=== PATIENT | female | born 1985 | race Two or more races ===

== ENCOUNTER 2017-06-01 02:24 | Emergency (ER) | payer MEDICAID, SELFPAY ==
[2017-06-01] MEDS ORDERED: Lorazepam 1 MG TAB ONE (03:07)
[2017-06-01] MEDS ORDERED: Lorazepam 2 MG/ML VIAL ONE (03:11)
--- NOTE | 2017-06-01 07:40 | RAD ---
SINGLE VIEW CHEST: Date: 06/01/17 COMPARISON: 11/07/15. HISTORY: Chest pain and tachycardia. FINDINGS: Single view of the chest shows a normal sized cardiomediastinal silhouette. There is no evidence of c onsolidation, mass, or pleural effusion. The bones are unremarkable. IMPRESSION: No evidence of acute cardiopulmonary disease. POS: [facility]
--- NOTE | 2017-07-02 14:58 | EKG ---
Test Reason : DRUG ABUSE Blood Pressure : / mmHG Vent. Rate : 098 BPM Atrial Rate : 098 BPM P-R Int : 144 ms QRS Dur : 072 ms QT Int : 332 ms P-R-T Axes : 068 070 049 degrees QTc Int : 423 ms Normal sinus rhythm with sinus arrhythmia Possible Left atrial enlargement Borderline ECG Confirmed by BRADLY VIRK, LALITA ([id number]), food editor LAZARO ZAVALA ([id number]) on 07/02/2017 2:57:27 PM Referred By: BRADLY Confirmed By:LALITA ABDULLAHI MD
== END 2017-06-01 04:00 | disposition home or self-care (01) ==
LOC: ERS 02:24
DX: F15.10 Other stimulant abuse, uncomplicated (principal); F41.9 Anxiety disorder, unspecified; R07.9 Chest pain, unspecified; F17.210 Nicotine dependence, cigarettes, uncomplicated; Z71.6 Tobacco abuse counseling; Z86.718 Personal history of other venous thrombosis and embolism
CPT/HCPCS: 71045; 93005; 96372; 99406; J2060

== ENCOUNTER 2017-09-30 16:32 | Emergency (ER) | payer SELFPAY ==
[2017-09-30] MEDS ORDERED: Bicillin LA 1.2 MILLION UNITS/2 ML SYRINGE ONE (16:53)
[2017-09-30] MEDS ORDERED: Dexamethasone 4 MG TAB ONE (16:54)
== END 2017-09-30 17:14 | disposition home or self-care (01) ==
LOC: ERS 16:32
DX: J02.0 Streptococcal pharyngitis (principal); F41.9 Anxiety disorder, unspecified; F17.210 Nicotine dependence, cigarettes, uncomplicated; Z71.6 Tobacco abuse counseling; Z86.718 Personal history of other venous thrombosis and embolism
CPT/HCPCS: 87430; 96372; 99406; J0561; J8540

== ENCOUNTER 2018-07-05 16:50 | Emergency (ER) | payer SELFPAY ==
[2018-07-05] MEDS ORDERED: Acetaminophen 500 MG TAB ONE (17:32)
== END 2018-07-05 18:33 | disposition home or self-care (01) ==
LOC: ERS 16:50
DX: B34.9 Viral infection, unspecified (principal); F41.9 Anxiety disorder, unspecified; F17.210 Nicotine dependence, cigarettes, uncomplicated; Z86.718 Personal history of other venous thrombosis and embolism
CPT/HCPCS: 99283

== ENCOUNTER 2018-11-26 10:00 | Emergency (ER) | payer SELFPAY | END 2018-11-26 10:21 | disposition left against medical advice (07) | LOC: ERS 10:00 | DX: Z53.21 Procedure and treatment not carried out due to patient leaving prior to being seen by health care provider (principal) ==

== ENCOUNTER 2019-03-14 23:55 | Emergency (ER) | payer SELFPAY ==
[2019-03-15] MEDS ORDERED: diphenhydrAMINE 50 MG/ML VIAL ONE (00:36)
[2019-03-15] MEDS ORDERED: Metoclopramide HCl 10 MG/2 ML VIAL ONE (00:36)
== END 2019-03-15 01:50 | disposition home or self-care (01) ==
LOC: ERS 23:55
DX: R51 Headache (principal); F17.210 Nicotine dependence, cigarettes, uncomplicated; F17.290 Nicotine dependence, other tobacco product, uncomplicated; Z86.718 Personal history of other venous thrombosis and embolism
CPT/HCPCS: 96365; 96375; J1200; J2765

== ENCOUNTER 2019-04-07 10:49 | Emergency (ER) | payer BC, SELFPAY | END 2019-04-07 13:00 | disposition left against medical advice (07) | LOC: ERS 10:49 | DX: Z53.21 Procedure and treatment not carried out due to patient leaving prior to being seen by health care provider (principal) ==

== ENCOUNTER 2020-02-10 20:20 | Emergency (ER) | payer BC, SELFPAY ==
--- NOTE | 2020-02-10 21:00 | RAD ---
Left elbow 4 views HISTORY: Fall. Injury. FINDINGS: Comminuted intra-articular fracture involves the posterior aspect of the radial head with 0 .6 cm intra-articular gap and one half shaft width posterior displacement of the major distal fragment. Only mild distention of the joint capsule consistent with hemarthrosis. IMPRESSION : Comminuted displaced intra-articular fracture of the radial head.
--- NOTE | 2020-02-10 21:01 | RAD ---
Right hand 3 views HISTORY: Injury. FINDINGS: Joint spaces are preserved. No acute fracture, dislocation, or aggressive osseous erosions. IMPRESSION : No abnormalities are demonstrated.
[2020-02-10] MEDS ORDERED: traMADol HCl 50 MG TAB ONE (21:38)
[2020-02-10] MEDS ORDERED: Ketorolac Tromethamine 30 MG/ML VIAL ONE (21:38)
== END 2020-02-10 22:20 | disposition home or self-care (01) ==
LOC: ERS 20:20
DX: S52.122A Displaced fracture of head of left radius, initial encounter for closed fracture (principal); S60.511A Abrasion of right hand, initial encounter; F17.210 Nicotine dependence, cigarettes, uncomplicated; Z86.718 Personal history of other venous thrombosis and embolism; Y04.8XXA Assault by other bodily force, initial encounter; Y93.72 Activity, wrestling
CPT/HCPCS: 24650; 96372; J1885

== ENCOUNTER 2020-02-11 14:14 | Emergency (ER) | payer BC ==
[2020-02-11] MEDS ORDERED: HYDROcodone/Acetaminophen 5/325 mg Tablet ONE (14:35)
--- NOTE | 2020-02-11 14:56 | RAD ---
XR Shoulder Lt 3 View STANDARD HISTORY: Injury, left shoulder pain FINDINGS: No fracture or dislocation is identified.
== END 2020-02-11 16:25 | disposition home or self-care (01) ==
LOC: ERS 14:14
DX: M25.512 Pain in left shoulder (principal); F17.210 Nicotine dependence, cigarettes, uncomplicated; Z79.899 Other long term (current) drug therapy; Z86.718 Personal history of other venous thrombosis and embolism; W18.30XA Fall on same level, unspecified, initial encounter

== ENCOUNTER 2020-02-15 14:35 | Emergency (ER) | payer BC | END 2020-02-15 16:12 | disposition home or self-care (01) | LOC: ERS 14:35 | DX: S52.122A Displaced fracture of head of left radius, initial encounter for closed fracture (principal); W19.XXXA Unspecified fall, initial encounter | CPT/HCPCS: 29105 ==

== ENCOUNTER 2024-01-25 06:09 | Emergency (ER) | payer OTHER, SELFPAY ==
[2024-01-25] MEDS ORDERED: Acetaminophen 500 MG TAB ONE (06:43)
== END 2024-01-25 07:13 | disposition home or self-care (01) ==
LOC: ERS 06:09
DX: S02.5XXA Fracture of tooth (traumatic), initial encounter for closed fracture (principal); K04.7 Periapical abscess without sinus; K02.9 Dental caries, unspecified; F17.290 Nicotine dependence, other tobacco product, uncomplicated; X58.XXXA Exposure to other specified factors, initial encounter
CPT/HCPCS: 99282

== ENCOUNTER 2024-02-09 06:54 | Emergency (ER) | payer OTHER, SELFPAY ==
[2024-02-09 07:45] LABS: Bacteria/HPF None Seen HPF (None Seen); Bilirubin Negative (Negative); Blood, Urine Negative (Negative); CAUTI Indications for Culture Dysuria,urgency,freq; Clarity Turbid (Clear); Glucose, Urine (Dipstick) Normal (Negative); Ketone, Urine Negative (Negative); Leukocyte Negative Leu/uL (Negative); Nitrite Negative (Negative); Protein, Urine (Dipstick) 10 mg/dL (Neg-Trace); RBC/HPF 0-3 HPF (0-3); Specific Gravity, Urine 1.031 (1.002-1.036); Urobilinogen Normal mg/dL (Less than 2); WBC/HPF 0-3 HPF (0-3); pH, Urine 5.5 (5.0-9.0)
[2024-02-09 07:46] LABS: Pregnancy Test - Urine (BHCG) Negative (Negative); Pregu Control Background? CLEAR/WHITE (CLR/WHITE); Pregu Control Bar Appear? YES (CONTROL BAR); Specific Gravity 1.031 (1.002-1.036); Urine Culture Reflex No No
[2024-02-09 14:06] LABS: GC by PCR, Vaginal Swab Not Detected (NotDetected)
== END 2024-02-09 07:59 | disposition home or self-care (01) ==
LOC: ERS 06:54
DX: N76.0 Acute vaginitis (principal); F17.290 Nicotine dependence, other tobacco product, uncomplicated
CPT/HCPCS: 81001; 81025; 87077; 87086; 87186; 87480; 87510; 87591; 87660; 99283

== ENCOUNTER 2024-02-29 08:51 | Emergency (ER) | payer OTHER | END 2024-02-29 09:53 | disposition home or self-care (01) | LOC: ERS 08:51 | DX: H10.89 Other conjunctivitis (principal); F17.290 Nicotine dependence, other tobacco product, uncomplicated | CPT/HCPCS: 99282 ==

== ENCOUNTER 2024-11-04 05:00 | Emergency (ER) | payer OTHER ==
[2024-11-04] MEDS ORDERED: Aspirin Chewable 81 MG TAB ONE (05:12)
[2024-11-04 05:44] LABS: #Basophils 0.04 10x3/uL (0.0-0.2); #Eosinophils 0.35 10x3/uL (0.0-0.7); #Monocytes 0.86 10x3/uL (0.11-0.59); #Neutrophils 8.12 10x3/uL (1.40-6.50); %Basophils 0.3 % (0.0-1.0); %Eosinophils 3.1 % (0.0-10.0); %Lymphocytes 17.9 % (21.0-51.0); %Monocytes 7.5 % (0.0-10.0); %Neutrophils 70.9 % (42.0-75.0); Hematocrit 35.0 % (36.0-47.0); Hemoglobin 11.5 g/dL (12.0-16.0); Mean Corpuscular Hemoglobin 29.3 pg (27.0-31.0); Mean Corpuscular Volume 89.1 fL (78.0-98.0); Platelet Count 310 10x3/uL (130-400); Red Blood Cell (RBC) Count 3.93 mill/uL (4.20-5.40); White Blood Cell (WBC) Count 11.46 10x3/uL (4.8-10.8)
[2024-11-04 06:06] LABS: ALT (SGPT) 16 U/L (Less than 34); AST (SGOT) 20 U/L (11-34); Albumin 3.6 g/dL (3.1-4.5); Alkaline Phosphatase 80 U/L (40-110); Anion Gap 11 mmol/L (10-20); BUN (Urea Nitrogen) 19 mg/dL (7.0-18.7); Bilirubin, Total 0.3 mg/dL (0.3-1.2); Calc. Creatinine Clearance 0 mL/min (70-130); Calcium 8.4 mg/dL (7.8-10.44); Carbon Dioxide 23 mmol/L (22-29); Chloride 111 mmol/L (98-107); Globulin 2.9 g/dL (2.4-3.5); Glucose 119 mg/dL (70-105); Lipase 27 U/L (8-78); Potassium 3.3 mmol/L (3.5-5.1); Sodium 142 mmol/L (136-145)
== END 2024-11-04 07:00 | disposition home or self-care (01) ==
LOC: ERS 05:00
DX: R07.89 Other chest pain (principal); E87.6 Hypokalemia; F17.290 Nicotine dependence, other tobacco product, uncomplicated
CPT/HCPCS: 36415; 71045; 80053; 83690; 83880; 84484; 85025; 85379; 93005

== ENCOUNTER 2025-01-05 23:21 | Emergency (ER) | payer OTHER ==
[2025-01-06 00:27] LABS: #Basophils 0.05 10x3/uL (0.0-0.2); #Eosinophils 0.29 10x3/uL (0.0-0.7); #Monocytes 1.06 10x3/uL (0.11-0.59); #Neutrophils 10.39 10x3/uL (1.40-6.50); %Basophils 0.3 % (0.0-1.0); %Eosinophils 2.0 % (0.0-10.0); %Lymphocytes 19.5 % (21.0-51.0); %Monocytes 7.2 % (0.0-10.0); %Neutrophils 70.7 % (42.0-75.0); Hematocrit 36.0 % (36.0-47.0); Hemoglobin 11.9 g/dL (12.0-16.0); Mean Corpuscular Hemoglobin 29.5 pg (27.0-31.0); Mean Corpuscular Volume 89.3 fL (78.0-98.0); Platelet Count 330 10x3/uL (130-400); Red Blood Cell (RBC) Count 4.03 mill/uL (4.20-5.40); White Blood Cell (WBC) Count 14.69 10x3/uL (4.8-10.8)
[2025-01-06] MEDS ORDERED: Mag-Al 1200 mg/1200 mg/30 ML UDCUP ONE (00:34)
[2025-01-06] MEDS ORDERED: Famotidine/PF 20 mg/2ml Vial ONE (00:35)
[2025-01-06] MEDS ORDERED: Lidocaine Viscous Sol 2% 15 ml UD Cup ONE (00:35)
[2025-01-06 00:43] LABS: ALT (SGPT) 19 U/L (Less than 34); AST (SGOT) 20 U/L (11-34); Albumin 3.8 g/dL (3.1-4.5); Alkaline Phosphatase 80 U/L (40-110); Anion Gap 14 mmol/L (10-20); BUN (Urea Nitrogen) 11 mg/dL (7.0-18.7); Bilirubin, Total 0.3 mg/dL (0.3-1.2); Calc. Creatinine Clearance 0 mL/min (70-130); Calcium 8.9 mg/dL (7.8-10.44); Carbon Dioxide 22 mmol/L (22-29); Chloride 106 mmol/L (98-107); Globulin 3.1 g/dL (2.4-3.5); Glucose 93 mg/dL (70-105); Lipase 20 U/L (8-78); Potassium 3.5 mmol/L (3.5-5.1); Sodium 138 mmol/L (136-145)
[2025-01-06] MEDS ORDERED: diphenhydrAMINE 50 MG/ML VIAL ONE (02:42)
[2025-01-06] MEDS ORDERED: Iopamidol-370 76% 500 ML MDV (1 ML CHARGE) ONE (13:38)
== END 2025-01-06 03:36 | disposition home or self-care (01) ==
LOC: ERS 23:21
DX: R07.89 Other chest pain (principal); Z86.718 Personal history of other venous thrombosis and embolism; F17.290 Nicotine dependence, other tobacco product, uncomplicated
CPT/HCPCS: 36415; 71045; 71275; 80053; 83690; 84484; 85025; 85379; 93005; 96374; 96375; J1200; J1308; Q9967